=== PATIENT | female | born 1960 | race Two or more races ===

== ENCOUNTER 2022-11-16 08:44 | Emergency (ER) | payer OTHER ==
[~2022-11-16] VITALS: Ht 167.6 cm; Wt 72.6 kg
== END 2022-11-16 13:36 | disposition home or self-care (01) ==
LOC: ER 08:44
DX: L03.115 Cellulitis of right lower limb (principal)

== ENCOUNTER 2023-01-25 12:37 | Outpatient (CLI) | payer OTHER | END 2023-01-25 12:44 | disposition home or self-care (01) | LOC: RAD 12:37 | PROVIDERS: ATTEND Orthopaedic Surgery | DX: M79.661 Pain in right lower leg (principal) ==